=== PATIENT | female | born 1990 | race African-American/Black ===

== ENCOUNTER 2017-07-31 16:02 | Emergency (ER) | payer OTHER ==
[~2017-07-31] VITALS: Ht 170.2 cm; Wt 94.8 kg
[2017-07-31 16:10] VITALS: BP 127/82
[2017-07-31] MEDS ORDERED: LISINOPRIL20 MG PO (16:53)
[2017-07-31] MEDS ORDERED: PROMETHAZINE/C118 ML PO (16:53)
[2017-07-31] MEDS ORDERED: GLUCOPHAGE XR500 MG PO (16:54)
[2017-07-31] MEDS ORDERED: PROTONIX40 M1 PO (16:55)
[2017-07-31] MEDS ORDERED: HYDROXYCHLOROQ200 M1 PO (16:55)
[2017-07-31] MEDS ORDERED: OXYCODONE HCL 55 MG PO (16:55)
[2017-07-31] MEDS ORDERED: MEDROLDOSEPACK PO (17:26)
[2017-07-31] MEDS ORDERED: TESSALON PERLE100 MG PO (17:26)
[2017-07-31] MEDS ORDERED: LEVAQUIN 500 M500 M2 PO (17:26)
== END 2017-07-31 17:47 | disposition home or self-care (01) ==
LOC: ER 16:02
DX: J18.9 Pneumonia, unspecified organism (principal); M32.9 Systemic lupus erythematosus, unspecified; Z88.2 Allergy status to sulfonamides; Z88.6 Allergy status to analgesic agent; Z88.1 Allergy status to other antibiotic agents; Z91.041 Radiographic dye allergy status; Z91.013 Allergy to seafood; Z88.8 Allergy status to other drugs, medicaments and biological substances